=== PATIENT | female | born 1930 | race Caucasian/White ===

== ENCOUNTER 2017-11-06 18:36 | Emergency (ER) | payer MEDICARE, BC ==
[~2017-11-06] VITALS: Ht 167.6 cm; Wt 68.0 kg
[2017-11-06] MEDS ORDERED: Morphine Sulfate 2mg/ml Inj IVP ONE (19:00)
[2017-11-06] MEDS ORDERED: Sodium Chloride 500ML 550 ML IV SCH (19:00)
--- NOTE | 2017-11-06 19:14 | Emergency Room Report ---
History of Present Illness General Chief Complaint: Altered Mental Status Source: Patient, Family Member Present Illness HPI The patient felt 10 days ago. She got a foot caught in her bed sheets. She did not lose consciousness. She bruised her left side of her face at that time. She's been ambulatory. She has a history of Parkinson's disease. There' s been no medication change. She's been taking ibuprofen for a right-sided headache at this time she rates at 7/10 and constant, sharp aching. It's above her right eyebrow doesn't radiate. There is no neck pain at this time. Transported by EMS. Not taking blood thinners. Today she's had increased lethargy with increased sleeping. There's been no vomiting or fever. She is unsteady on her feet and needs to be assisted for ambulation. She complains of some thirstiness and decreased appetite. There's no sore throat, cough, chest pain, palpitations, change in bowel habits or dysuria. His other extremity joint tenderness at this time. She states that she has poor vision and there's been no change in her vision. Allergies: Coded Allergies: SULFA (SULFONAMIDE ANTIBIOTICS) (Verified Allergy, Unknown, 11/06/17) Patient History Past Medical History: see triage record Past Surgical History: other - sylastic lens Social History: Denies: smoking Social History Narrative With family (son) - displaced by [employer] and staying in a hotel Last Menstrual Period: Unk Reviewed Nursing Documentation: PMH: Agreed, PSxH: Agreed Review of Systems All Other Systems: negative except mentioned in HPI Physical Exam Vital Signs Date Time Temp Pulse Resp B/P (MAP) Pulse Ox O2 Delivery O2 Flow Rate FiO2 11/06/17 18:37 Room Air Sp02 EP Interpretation: reviewed, normal General Appearance: no apparent distress, GCS 15, other - punk Head: normocephalic Eyes: right eye other - sylastic lens, bilateral eye EOMI ENT: dry mucus membranes Neck: full range of motion, supple, no bony tend Respiratory: lungs clear, normal breath sounds Cardiovascular #1: regular rate, rhythm, no edema Cardiovascular #2: 2+ radial (L) Gastrointestinal: normal inspection, normal bowel sounds, non tender, no mass, non-distended Musculoskeletal: back normal, normal range of motion Neurologic: alert, oriented x3, cerebellar normal - with intention tremor, speech normal, motor weakness - R facial weakness, min drift R, intention tremor bilat, sensory deficit - min R facial, RUE decreased or altered sensation Psychiatric: depressed affect - sleepy Reflexes: 2+ knee (R), 2+ knee (L) Skin: warm/dry, other - ecchymoses L cheek Procedures Critical Care Time Critical Care Time Total Critical Care Time: 30 min bedside evaluation and treatment excludes procedures (EKG). Reason for critical care: subdural hematoma, transfer higher level of care Possible complications: hypotension, hypertension, [place], shock, arrhythmias, metabolic acidosis, end organ damage, respiratory failure, seizures. Interventions: arrange for higher level of care, keppra, repeat evaluations Course: Patient with weakness, sensory changes post fall 10 days before. Immediate evaluation for [employer] injury. Bleed read by me, transfer initiated. Presented to trauma and neurosurgeon. Discuss need for Keppra. Repeat evaluation. Discussed with family and paramedics. Consultations: nursing staff, EMS, family, trauma and neuro surgeons Performed by: Dr. Ford Tolerated well condition = serious Medical Decision Making Diagnostic Impression: Primary Impression: Subdural hematoma without coma Qualified Codes: S06.5X0A - Traumatic subdural hemorrhage without loss of consciousness, initial encounter Additional Impressions: Parkinsons Facial contusion Qualified Codes: S00.83XA - Contusion of other part of head, initial encounter Focal neurological deficit present ER Course Patient presents with unsteady gait, lethargy and neurologic findings on the right side. Differential includes stroke, subdural, medication excess, exacerbation of Parkinson's, electrolyte abnormality amongst others. Evaluation will be with CT, EKG chest x-ray and labs. The patient is complaining about pain will be treated with a small dose of analgesia. Because and unsteady gaits and signs of a possible stroke she'll be admitted to the hospital. If there is a bleed she will need to be transferred for higher level of care. CT read by me. + subdural with IC blood. Erlin contacted at 20:35. Discussed with Erlin - Dr. Kramer and Dr. Serna who accept patient. Keppra discussed and ordered. Discussed with family. Pain is better, 6/10 and not bothering her. Neurologic exam unchanged on re-evaluation. ETA for PRN > 2 hours. [facility] called. Presented to paramedics. Laboratory Tests Test 11/06/17 19:20 11/06/17 21:10 White Blood Count 10.2 K/UL (4.8-10.8) Red Blood Count 4.06 M/UL (4.20-5.40) L Hemoglobin 11.9 G/DL (12.0-16.0) L Hematocrit 38.4 % (37.0-47.0) Mean Corpuscular Volume 95 FL (80-99) Mean Corpuscular Hemoglobin 29.3 PG (27.0-31.0) Mean Corpuscular Hemoglobin Concent 31.0 G/DL (32.0-36.0) L Red Cell Distribution Width 12.2 % (11.6-14.8) Platelet Count 282 K/UL (150-450) Mean Platelet Volume 6.9 FL (6.5-10.1) Neutrophils (%) (Auto) 67.4 % (45.0-75.0) Lymphocytes (%) (Auto) 21.8 % (20.0-45.0) Monocytes (%) (Auto) 8.3 % (1.0-10.0) Eosinophils (%) (Auto) 1.2 % (0.0-3.0) Basophils (%) (Auto) 1.3 % (0.0-2.0) Erythrocyte Sedimentation Rate 50 MM/HR (0-42) H Prothrombin Time 10.0 SEC (9.30-11.50) Prothrombin Time INR 1.0 (0.9-1.1) PTT 31 SEC (23-33) Sodium Level 134 MMOL/L (136-145) L Potassium Level 3.7 MMOL/L (3.5-5.1) Chloride Level 97 MMOL/L (98-107) L Carbon Dioxide Level 30 MMOL/L (21-32) Anion Gap 7 mmol/L (5-15) Blood Urea Nitrogen 16 mg/dL (7-18) Creatinine 0.8 MG/DL (0.55-1.30) Estimate Glomerular Filtration Rate mL/min (>60) Glucose Level 98 MG/DL (74-106) Calcium Level 7.8 MG/DL (8.5-10.1) L Total Bilirubin 0.7 MG/DL (0.2-1.0) Aspartate Amino Transferase (AST) 16 U/L (15-37) Alanine Aminotransferase (ALT) 6 U/L (12-78) L Alkaline Phosphatase 84 U/L (46-116) Ammonia 4 umol/L (11-32) L Total Creatine Kinase 18 U/L (26-308) L Troponin I 0.007 ng/mL (0.000-0.056) Pro-B-Type Natriuretic Peptide 533 pg/mL (0-125) H Total Protein 7.2 G/DL (6.4-8.2) Albumin 3.2 G/DL (3.4-5.0) L Globulin 4.0 g/dL Albumin/Globulin Ratio 0.8 (1.0-2.7) L Thyroid Stimulating Hormone (TSH) 1.207 uiU/mL (0.358-3.740) Serum Alcohol < 3 mg/dL Urine Color Pale yellow Urine Appearance Cloudy Urine pH 8 (4.5-8.0) Urine Specific [place] 1.015 (1.005-1.035) Urine Protein Negative (NEGATIVE) Urine Glucose (UA) Negative (NEGATIVE) Urine Ketones Negative (NEGATIVE) Urine Occult Blood Negative (NEGATIVE) Urine Nitrite Negative (NEGATIVE) Urine Bilirubin Negative (NEGATIVE) Urine Urobilinogen Normal MG/DL (0.0-1.0) Urine Leukocyte Esterase 2+ (NEGATIVE) H Urine RBC Pending Urine WBC Pending Urine Squamous Epithelial Cells Pending Urine Bacteria Pending Urine Opiates Screen Pending Urine Barbiturates Screen Pending Phencyclidine (PCP) Screen Pending Urine Amphetamines Screen Pending Urine Benzodiazepines Screen Pending Urine Cocaine Screen Pending Urine Marijuana (THC) Screen Pending EKG Diagnostic Results Rate: normal Rhythm: NSR ST Segments: no acute changes Rhythm Strip Diag. Results EP Interpretation: yes Rhythm: NSR, no PVC's, no ectopy Chest X-Ray Diagnostic Results Chest X-Ray Diagnostic Results : Chest X-Ray Ordered: Yes # of Views/Limited/Complete: 1 View Indication: Other Interpretation: no effusion, no pneumothorax, other - atelectasis L Impression: Other Electronically Signed by: Electronically signed by Cezar Ford MD CT/MRI/US Diagnostic Results CT/MRI/US Diagnostic Results : Imaging Test Ordered: head Impression subdural hematoma with IC blood Last Vital Signs Date Time Temp Pulse Resp B/P (MAP) Pulse Ox O2 Delivery O2 Flow Rate FiO2 11/06/17 22:17 98.1 74 17 142/69 100 Room Air Status: improved Disposition: XFER SHT-TRM HOSP Condition: Serious - stable for transfer to higher level of care Cezar Ford M.D. Nov 06, 2017 19:14
[2017-11-06 19:35] VITALS: BP 168/68
[2017-11-06 19:35] LABS: BASOPHILS % (AUTO) 1.3 % (0.0-2.0); EOSINOPHILS % (AUTO) 1.2 % (0.0-3.0); LYMPHOCYTES % (AUTO) 21.8 % (20.0-45.0); MEAN CORPUSCULAR HEMOGLOBIN 29.3 PG (27.0-31.0); MEAN CORPUSCULAR VOLUME 95 FL (80-99); MEAN PLATELET VOLUME 6.9 FL (6.5-10.1); MONOCYTES % (AUTO) 8.3 % (1.0-10.0); NEUTROPHILS % (AUTO) 67.4 % (45.0-75.0); PLATELET COUNT 282 K/UL (150-450); RED BLOOD COUNT 4.06 M/UL (4.20-5.40); RED CELL DISTRIBUTION WIDTH 12.2 % (11.6-14.8); WHITE BLOOD COUNT 10.2 K/UL (4.8-10.8)
[2017-11-06 19:50] LABS: AMMONIA 4 umol/L (11-32); ANION GAP 7 mmol/L (5-15); CALCIUM 7.8 MG/DL (8.5-10.1); CARBON DIOXIDE 30 MMOL/L (21-32); CHLORIDE 97 MMOL/L (98-107); CREATININE 0.8 MG/DL (0.55-1.30); POTASSIUM 3.7 MMOL/L (3.5-5.1); SODIUM 134 MMOL/L (136-145)
[2017-11-06 20:02] LABS: ALANINE AMINOTRANSFERASE 6 U/L (12-78); ALBUMIN/GLOBULIN RATIO 0.8 (1.0-2.7); ALCOHOL < 3 mg/dL; ASPARTATE AMINO TRANSFERASE 16 U/L (15-37); THYROID STIMULATING HORMONE 1.207 uiU/mL (0.358-3.740); TOTAL PROTEIN 7.2 G/DL (6.4-8.2)
[2017-11-06 20:38] LABS: ERYTHROCYTE SEDIMENTATION RATE 50 MM/HR (0-42)
[2017-11-06 21:15] VITALS: BP 138/70
[2017-11-06 21:22] LABS: APPEARANCE,URINE CLOUDY; KETONES,URINE NEGATIVE (NEGATIVE); LEUKOCYTE ESTERASE ,URINE 2+ (NEGATIVE); NITRITE,URINE NEGATIVE (NEGATIVE); PH,URINE 8 (4.5-8.0); PROTEIN,URINE NEGATIVE (NEGATIVE); UROBILINOGEN,URINE NORMAL MG/DL (0.0-1.0)
[2017-11-06 21:34] LABS: AMORPHOUS SEDIMENT,UR MODERATE /LPF; BACTERIA,URINE OCCASIONAL /HPF; RBC,URINE 0-2 /HPF (0 - 2); SQUAMOUS EPITHELIAL CELL,UR OCCASIONAL /LPF (NONE/OCC)
[2017-11-06] MEDS ORDERED: levETIRAcetam 500mg/NS100ml 100 ML IVPB ONE (21:45)
[2017-11-06 22:10] VITALS: BP 142/69
[2017-11-06 22:17] VITALS: BP 142/69
--- NOTE | 2017-11-07 10:27 | Diagnostic Imaging Report ---
Indication: Altered level of consciousness Technique: Contiguous 5 mm thick transaxial imaging of the head obtained in a Siemens Sensation [address] scanner. Soft tissue and bone windows generated. Automatic Exposure Control was utilized. Total Dose length Product (DLP): 1462.[address] Dose Index Volume (CTDIvol): 70.38 mGy Comparison: none Findings: Acute subdural hematoma demonstrated along the lower aspect of the right temporal lobe just above the tentorial reflection extending over the right cerebral convexity overlying the right temporal and posterior parietal lobes. The thickness of the subdural is less than 5 mm on both axial and coronal imaging. There is some mass effect as evidence by cortical effacement of the right parietal lobe and posterior temporal lobe asymmetric to the normal appearing sulci in the contralateral brain. The basal cisterns are essentially normal. There is no mass effect on the lateral ventricles which appear symmetric. There is no midline shift. Generalized underlying mild atrophy of the brain is noted. There is moderate periventricular low attenuation consistent with chronic small vessel disease. Bones are osteopenic. There is no calvarial fracture identified. IMPRESSION: Acute right-sided subdural hematoma as described above. Associated mild mass effect of the underlying brain manifesting as effaced cortical sulci. No midline shift. Critical value communication. Findings were discussed via telephone with Dr. Ford 11/06/2017, 21:34 by the stat rad physician Dr. Yvon Moise. [facility] has communicated the preliminary results to the Emergency Department. Their findings are largely concordant with this report. The CT scanner at [facility] is accredited by the [employer] and the scans are performed using dose optimization techniques as appropriate to a performed exam including Automatic Exposure control.
--- NOTE | 2017-11-07 12:22 | Diagnostic Imaging Report ---
Indication: Dyspnea Comparison: None A single view chest radiograph was obtained. Findings: No definite infiltrate or pulmonary vascular congestion identified. Linear density at left lung base may be scar or atelectasis. The heart is enlarged. The aorta is mildly enlarged consistent with atherosclerotic vascular disease. The bones are osteopenic. Impression: No acute disease
--- NOTE | 2017-11-21 00:25 | Cardiology Report ---
APPROVED REPORT EKG Measurement Heart [id number] Normal sinus rhythm Nonspecific ST abnormality Abnormal ECG
== END 2017-11-06 22:17 | disposition short-term general hospital (02) ==
LOC: EDBD 18:36 → EMR 19:00
DX: S06.5X0A Traumatic subdural hemorrhage without loss of consciousness, initial encounter (principal); G20 Parkinson's disease; S00.83XA Contusion of other part of head, initial encounter; Z88.2 Allergy status to sulfonamides; W01.0XXA Fall on same level from slipping, tripping and stumbling without subsequent striking against object, initial encounter; Y92.9 Unspecified place or not applicable
CPT/HCPCS: 36415; 70450; 71010; 80053; 80307; 81003; 82140; 82550; 83880; 84443; 84484; 85025; 85610; 85651; 85730; 93005; 96361; 96365; 96375; 99285; G0480; J1953; J2270; J2405; 80329